=== PATIENT | female | born 1980 | race Caucasian/White ===

== ENCOUNTER → 2017-02-16 | Outpatient (CLI) | payer OTHER ==
--- NOTE | 2017-02-16 15:44 | RAD ---
CT of the abdomen and pelvis without contrast, 02/16/2017: History: Chronic renal calculi, microhematuria Noncontrast scans were obtained utilizing the renal stone protocol. There are small intrarenal calculi bilaterally. The largest of these measures 7 mm and lies in the right renal pelvis. At least 5 other smaller right renal calculi are present. There is no evidence of hydronephrosis on the right. There is mild right renal cortical scarring. The right ureter is not dilated. The distal right ureter cannot be clearly traced through the pelvis, however, no distal ureteral calculus is seen. There are several pelvic phleboliths bilaterally. There are also several intrarenal calculi on the left. The largest of these measures 6 mm. Two other smaller left renal calculi are present. There is moderate left renal cortical scarring. There is no evidence of hydronephrosis. The left ureter is not dilated. No left ureteral calculus is evident. The partially filled urinary bladder is unremarkable. The unopacified liver shows no abnormality. The gallbladder is unremarkable. No pancreatic abnormality is seen. The spleen is of normal size. The aorta is unremarkable. Several small retroperitoneal and mesenteric lymph nodes are seen without evidence of pathologic enlargement. The bowel loops are not dilated. The appendix contains a small amount radiopaque material but is otherwise unremarkable. No free fluid is evident in the abdomen or pelvis. IMPRESSION: 1. Bilateral nonobstructing intrarenal calculi. 2. Moderate moderate renal cortical scarring, more so on the left. 3. No acute abnormal areas detected. PQRS Compliance Statement: One or more of the following individualized dose reduction techniques were utilized for this examination: 1. Automated exposure control 2. Adjustment of the mA and/or kV according to patient size 3. Use of iterative reconstruction technique
== END | disposition home or self-care (01) ==
LOC: CT 11:22
PROVIDERS: ATTEND Urology
DX: N20.0 Calculus of kidney (principal); N28.89 Other specified disorders of kidney and ureter; I87.8 Other specified disorders of veins
CPT/HCPCS: 74176

== ENCOUNTER → 2019-06-01 | Outpatient (CLI) | payer OTHER ==
--- NOTE | 2019-06-01 16:53 | RAD ---
CT scan abdomen and pelvis without contrast 06/01/2019 CLINICAL HISTORY: Right-sided abdominal pain. History of renal calculi. TECHNIQUE: Unenhanced, contiguous, 3 mm axial sections were obtained through the abdomen and pelvis. One or more of the following individualized dose reduction techniques were utilized for this study: 1. Automated exposure control. 2. Adjustment of the mA and/or kV according to patient size. 3. Use of iterative reconstruction technique. FINDINGS: Comparison study is dated 02/16/2017. Images through the lung bases demonstrate minimal dependent subsegmental atelectasis bilaterally. Images through the lung bases are within normal limits. The liver, spleen, pancreas, and right adrenal gland are within normal limits. A punctate benign-appearing calcification is seen within the left adrenal gland, unchanged. Multiple bilateral nonobstructing renal calculi are seen. These measure 1 mm to 1 cm in size. An area of scarring is seen involving this superior pole of the left kidney, unchanged. No ureteral calculus is seen. There is no evidence of obstruction of either collecting system. The gallbladder is contracted. The abdominal aorta tapers normally. No free fluid or free air is seen within the abdomen. There is no evidence of bowel obstruction. The appendix is well-visualized and is within normal limits. Images through the pelvis demonstrate the urinary bladder distended with urine. Calcifications are seen within the pelvis consistent with phleboliths. No adnexal mass is seen. No free fluid is noted. Minimal S-shaped curvature of the thoracolumbar spine is seen. IMPRESSION: 1. Bilateral nonobstructing renal calculi. No ureteral calculus is seen. There is no evidence of obstruction of either collecting system. 2. No acute parenchymal abnormality is seen. Electronically signed by: Luis Daniel Kapadia MD (06/01/2019 4:50 PM) [id number]
== END | disposition home or self-care (01) ==
LOC: CT 10:04
PROVIDERS: ATTEND Urology
DX: N20.0 Calculus of kidney (principal); Z87.442 Personal history of urinary calculi
CPT/HCPCS: 74176